=== PATIENT | female | born 1950 | race Caucasian/White ===

== ENCOUNTER 2024-09-25 18:42 | Inpatient (IN) | payer OTHER ==
[2024-09-25] MEDS ORDERED: ACETAMINOPHEN INJECTION 100 ML ONE (19:32)
[2024-09-25] MEDS: SODIUM CHLORIDE 1,000 ML IV ONE (19:35)
[2024-09-25] MEDS: ACETAMINOPHEN 1000 MG/100 ML BAG IVPB ONE (19:40)
[2024-09-25 20:04] LABS: ABSOLUTE IMMATURE GRANULOCYTES 0.01 x10^3/uL (0.0-0.031); BASOPHILS # 0.02 x10^3/uL (0.01-0.08); HEMATOCRIT 40.6 % (34.1-44.9); HEMOGLOBIN 13.9 g/dL (11.2-15.7); MCHC 34.2 g/dl (32.2-35.5); MEAN CELL VOLUME 96.2 fl (79.4-94.8); MEAN PLT VOLUME 10.9 fl (9.4-12.3); MONOCYTE # 0.35 x10^3/uL (0.24-0.86); MONOCYTE % 5.2 % (4.7-12.5); PLATELET COUNT 139 x10^3/uL (182-369); RDW 11.9 % (12.4-16.6); WHITE BLOOD COUNT 6.8 x10^3/uL (3.98-10.04)
[2024-09-25 20:14] LABS: ALBUMIN 4.2 g/dl (3.4-5.0); BILIRUBIN,TOTAL 2.2 mg/dl (0.2-1); CALCIUM 8.9 mg/dl (8.5-10.1); CREATININE 0.6 mg/dl (0.6-1.3); MAGNESIUM 1.7 mg/dL (1.8-2.4); POTASSIUM 3.8 mmol/L (3.5-5.1); TOT PROT 6.2 g/dl (6.4-8.2)
[2024-09-25 21:21] LABS: URIC ACID CRYSTALS FEW /hpf (NONE SEEN)
[2024-09-25] MEDS: MAGNESIUM OXIDE 400 MG TABLET (FP) PO ONE (23:41)
[2024-09-26 00:22] VITALS: BMI 23.1
[2024-09-26] MEDS: ACETAMINOPHEN 1000 MG/100 ML BAG IVPB PRN (00:35)
[2024-09-26] MEDS: SODIUM CHLORIDE 0.9%/KCL 20 MEQ/1,000 ML INFUS.BAG IV SCH (00:37)
[2024-09-26] MEDS: MELATONIN 5 MG TABLETS PO PRN (03:47)
[2024-09-26 07:40] LABS: ABSOLUTE IMMATURE GRANULOCYTES 0.01 x10^3/uL (0.0-0.031); BASOPHILS # 0.01 x10^3/uL (0.01-0.08); EOSINOPHIL % 0.2 % (0.7-5.8); EOSINOPHILS # 0.01 x10^3/uL (0.04-0.36); HEMATOCRIT 41.9 % (34.1-44.9); MCHC 33.4 g/dl (32.2-35.5); MEAN CELL VOLUME 96.1 fl (79.4-94.8); MONOCYTE # 0.44 x10^3/uL (0.24-0.86); MONOCYTE % 10.9 % (4.7-12.5); PLATELET COUNT 157 x10^3/uL (182-369); RDW 11.9 % (12.4-16.6)
[2024-09-26 07:45] LABS: INR 1.14 (0.83-1.09); PROTHROMBIN TIME (PATIENT) 12.6 SEC (9.7-13.0)
[2024-09-26 07:47] LABS: ACTIVATED PTT 21.6 SECONDS (25.2-36.5)
[2024-09-26 07:54] LABS: BILIRUBIN,TOTAL 4.2 mg/dl (0.2-1); CALCIUM 8.9 mg/dl (8.5-10.1); CREATININE 0.6 mg/dl (0.6-1.3); MAGNESIUM 1.9 mg/dL (1.8-2.4); POTASSIUM 4.1 mmol/L (3.5-5.1); TOT PROT 5.9 g/dl (6.4-8.2)
[2024-09-26] MEDS ORDERED: ONDANSETRON 4 MG/2 ML VIAL IVPUSH PRN (09:20)
[2024-09-26] MEDS ORDERED: BUPIVACAINE HCL/PF 2.5 MG/ML - 30 ML VIAL IJ ONE (09:22)
[2024-09-26] MEDS ORDERED: MIDAZOLAM HCL 2 MG/2 ML SINGLE DOSE VIAL ONE (09:23)
[2024-09-26] MEDS ORDERED: ROCURONIUM BROMIDE 50 MG/5 ML SYRINGE ONE (09:23)
[2024-09-26] MEDS ORDERED: PROPOFOL 20 ML ONE (09:23)
[2024-09-26] MEDS ORDERED: LIDOCAINE HCL/PF 2% SDV 5ML VIAL ONE (09:24)
[2024-09-26] MEDS: BUPIVACAINE HCL/PF 0.25% (2.5MG/ML) 10 ML VIAL IJ ONE (10:03)
[2024-09-26] MEDS ORDERED: cefOXitin SODIUM 2 GM VIAL (RESTRICTED TO ID) IVPB ONE (10:05)
[2024-09-26] MEDS ORDERED: SUGAMMADEX SODIUM 200 MG/2 ML VIAL ONE (10:36)
[2024-09-26] MEDS ORDERED: DEXAMETHASONE SOD PHOSPHATE 4 MG/1 ML VIAL ONE (10:36)
[2024-09-26] MEDS ORDERED: ONDANSETRON 4 MG/2 ML VIAL ONE (10:36)
[2024-09-26] MEDS: oxyCODONE HCL 5 MG TABLET PO PRN (11:30)
[2024-09-26] MEDS ORDERED: oxyCODONE HCL 5 MG TABLET ONE (11:43)
[2024-09-26] MEDS: LACTATED RINGERS SOLUTION 1,000 ML IV SCH (12:15)
[2024-09-26] MEDS: DOCUSATE SODIUM 100 MG CAPSULE (FP) PO SCH (21:58)
[2024-09-27 07:56] LABS: ABSOLUTE IMMATURE GRANULOCYTES 0.01 x10^3/uL (0.0-0.031); BASOPHILS # 0.01 x10^3/uL (0.01-0.08); HEMATOCRIT 39.2 % (34.1-44.9); HEMOGLOBIN 12.8 g/dL (11.2-15.7); MCHC 32.7 g/dl (32.2-35.5); MEAN CELL VOLUME 97.8 fl (79.4-94.8); MEAN PLT VOLUME 11.2 fl (9.4-12.3); MONOCYTE # 0.53 x10^3/uL (0.24-0.86); MONOCYTE % 9.7 % (4.7-12.5); PLATELET COUNT 141 x10^3/uL (182-369); RDW 12.5 % (12.4-16.6); WHITE BLOOD COUNT 5.5 x10^3/uL (3.98-10.04)
[2024-09-27] MEDS ORDERED: MELATONIN 5 MG TABLETS PO PRN (07:56)
[2024-09-27] MEDS: LACTATED RINGERS SOLUTION 1,000 ML IV SCH (08:02)
[2024-09-27] MEDS: SODIUM CHLORIDE 0.9%/KCL 20 MEQ/1,000 ML INFUS.BAG IV SCH (08:02)
[2024-09-27 08:20] LABS: POTASSIUM 3.6 mmol/L (3.5-5.1)
[2024-09-27 08:29] LABS: ALBUMIN 3.2 g/dl (3.4-5.0); BLOOD UREA NITROGEN 6.8 mg/dL (7-18)
[2024-09-27 08:32] LABS: CREATININE 0.5 mg/dL (0.55-1.3)
[2024-09-27 08:34] LABS: BILIRUBIN,TOTAL 1.1 mg/dL (0.2-1); TOT PROT 5.5 g/dl (6.4-8.2)
[2024-09-27 09:36] LABS: BILIRUBIN,DIRECT 0.5 mg/dL (0.0-0.2)
[2024-09-27] MEDS: PIPERACILLIN/TAZOB 3.375 GM 3.375 GM in DEXTROSE 5%-WATER - 50 ML IVPB SCH (09:53)
[2024-09-27] MEDS ORDERED: PIPERACILLIN/TAZOB 3.375 GM 3.375 GM in DEXTROSE 5%-WATER - 50 ML IVPB SCH (15:15)
[2024-09-27] MEDS: ACETAMINOPHEN 1000 MG/100 ML BAG IVPB PRN (20:21)
[2024-09-27] MEDS: DOCUSATE SODIUM 100 MG CAPSULE (FP) PO SCH (21:24)
[2024-09-28 08:17] LABS: HEMATOCRIT 39.7 % (34.1-44.9); HEMOGLOBIN 12.8 g/dL (11.2-15.7); MCHC 32.2 g/dl (32.2-35.5); MEAN PLT VOLUME 11.2 fl (9.4-12.3); PLATELET COUNT 122 x10^3/uL (182-369); RDW 12.5 % (12.4-16.6)
[2024-09-28 08:19] LABS: POTASSIUM 3.6 mmol/L (3.5-5.1)
[2024-09-28 08:29] LABS: CALCIUM 8.9 mg/dL (8.5-10.1)
[2024-09-28 08:30] LABS: ALBUMIN 3.1 g/dl (3.4-5.0); BLOOD UREA NITROGEN 5.7 mg/dL (7-18)
[2024-09-28 08:32] LABS: CREATININE 0.5 mg/dL (0.55-1.3)
[2024-09-28 08:34] LABS: BILIRUBIN,TOTAL 1.3 mg/dL (0.2-1); TOT PROT 5.5 g/dl (6.4-8.2)
[2024-09-28] MEDS: PANTOPRAZOLE 40 MG TABLET PO SCH (09:22)
[2024-09-28] MEDS: PIPERACILLIN/TAZOB 3.375 GM 3.375 GM in DEXTROSE 5%-WATER - 50 ML IVPB SCH (10:28)
[2024-09-28] MEDS ORDERED: ROCURONIUM BROMIDE 50 MG/5 ML SYRINGE ONE (12:36)
[2024-09-28 22:04] VITALS: RESP 18
[2024-09-29 09:35] LABS: ALBUMIN 3.4 g/dl (3.4-5.0)
[2024-09-29 09:37] LABS: BILIRUBIN,DIRECT 0.5 mg/dL (0.0-0.2)
[2024-09-29 09:39] LABS: BILIRUBIN,TOTAL 1.2 mg/dL (0.2-1)
[2024-09-29 09:40] LABS: TOT PROT 5.8 g/dl (6.4-8.2)
[2024-09-29 10:30] VITALS: BP 118/75; PULSE 72; TEMP 98
== END 2024-09-29 12:25 | disposition home or self-care (01) | DRG 418 ==
LOC: FER 18:42 → FM/S 22:38 → UNDOADMIN 22:49 → FM/S 09-26 02:29 → J8W 09-27 00:06 → UNDODISIN 09-27 15:06
PROVIDERS: ADMIT Family Medicine; ATTEND Nurse Practitioner Acute Care
PROC: 0FT44ZZ Resection of Gallbladder, Percutaneous Endoscopic Approach (ICD-10-PCS; principal; 2024-09-26 09:59)
PROC: 0F998ZZ Drainage of Common Bile Duct, Via Natural or Artificial Opening Endoscopic (ICD-10-PCS; 2024-09-28)
PROC: BF14YZZ Fluoroscopy of Gallbladder, Bile Ducts and Pancreatic Ducts using Other Contrast (ICD-10-PCS; 2024-09-28)
PROC: 0FC98ZZ Extirpation of Matter from Common Bile Duct, Via Natural or Artificial Opening Endoscopic (ICD-10-PCS; 2024-09-28)
PROC: BF10YZZ Fluoroscopy of Bile Ducts using Other Contrast (ICD-10-PCS; 2024-09-28)
PROC: 0F798DZ Dilation of Common Bile Duct with Intraluminal Device, Via Natural or Artificial Opening Endoscopic (ICD-10-PCS; 2024-09-28)
DX: K80.40 Calculus of bile duct with cholecystitis, unspecified, without obstruction (principal); K82.1 Hydrops of gallbladder; K59.00 Constipation, unspecified; R10.9 Unspecified abdominal pain; R74.01 Elevation of levels of liver transaminase levels
CPT/HCPCS: 36415; 74176-TC; 74181-TC; 76000-TC-FY; 76705-TC; 80053; 80076; 81003; 81015; 83605; 83690; 83735; 85025; 85027; 85610; 85730; 86850; 86900; 86901; 88304-TC; 88307-TC; 93005; 94760; 99285-25